=== PATIENT | female | born 1975 | race Hispanic/Latino ===

== ENCOUNTER 2017-12-26 13:58 | Outpatient (CLI) | payer OTHER | END 2017-12-26 13:59 | disposition home or self-care (01) | LOC: BICULT 13:58 | PROVIDERS: ATTEND Family Medicine | DX: O09.522 Supervision of elderly multigravida, second trimester (principal) | CPT/HCPCS: 76805 ==

== ENCOUNTER 2018-03-09 02:21 | Inpatient (IN) | payer OTHER ==
[2018-03-09] MEDS ORDERED: Ondansetron PF 4 MG/2 ML Vial IVP PRN ×2 (03:32→09:22)
[2018-03-09] MEDS ORDERED: HYDROcodone/Acetaminophen 5/325 mg Tablet PO PRN ×4 (03:32→09:22)
[2018-03-09] MEDS ORDERED: Ibuprofen 800 MG TAB PO PRN (03:32)
[2018-03-09] MEDS ORDERED: Lidocaine 1% (PF) 30 ML VIAL SC PRN (03:32)
[2018-03-09] MEDS ORDERED: Penicillin G Potassium 5 MILL.UNITS VIAL ONE ×2 (03:34)
[2018-03-09 03:43] VITALS: BMI 30.2
[2018-03-09] MEDS ORDERED: Penicillin G Potassium 5 MILL.UNITS in Sodium Chloride 0.9% 100 ML IVPB SCH (03:45)
[2018-03-09] MEDS ORDERED: Lactated Ringer's 1,000 ML IV SCH ×2 (03:45)
[2018-03-09 03:55] LABS: Hemoglobin 12.2 g/dL (12.0-16.0); Mean Corpuscular HGB CONC 34.2 g/dL (32.0-36.0); Mean Corpuscular Hemoglobin 34.7 pg (27.0-31.0); Mean Platelet Volume 10.6 fL (7.4-10.4); Platelet Count 134 thou/uL (130-400); RBC Distribution Width 13.4 % (11.5-14.5); Red Blood Cell (RBC) Count 3.53 mill/uL (4.20-5.40); White Blood Cell (WBC) Count 10.8 thou/uL (4.8-10.8)
[2018-03-09] MEDS: Butorphanol Tartrate 1 MG/ML VIAL SLOW IVP PRN ×2 (04:26→06:59)
[2018-03-09 04:35] LABS: HBSAg Index 0.16 S/CO (0-0.99); Hep B Surf Ag Non-Reactive S/CO (NonReactive)
[2018-03-09 04:52] LABS: Syphilis Antibody Nonreactive (Nonreactive); Syphilis Antibody Index 0.03 S/CO (<1.00 Non-Reactive)
[2018-03-09] MEDS ORDERED: Morphine 10 MG/ML VIAL SLOW IVP SCH (05:00)
[2018-03-09] MEDS ORDERED: NS w/ Oxytocin 10 units 500 ML IVPB SCH (07:00)
[2018-03-09] MEDS: Penicillin G 2.5 MILL.units 2.5 MILL.UNITS in Premix Bag 1 BAG IVPB SCH (07:02)
[2018-03-09] MEDS: NS / Oxytocin 40 units/1000ml 1,000 ML IV PRN ×2 (07:11→08:51)
[2018-03-09] MEDS ORDERED: NS / Oxytocin 40 units/1000ml 1,000 ML IV SCH (09:22)
[2018-03-09] MEDS ORDERED: Benzocaine/Menthol 20-0.5% 60 ML CAN TOP PRN (09:22)
[2018-03-09] MEDS ORDERED: Lanolin Ointment 7 GM TUBE TOP PRN (09:22)
[2018-03-09] MEDS ORDERED: Milk Of Magnesia 30 ML UDCUP PO PRN (09:22)
[2018-03-09] MEDS ORDERED: Bisacodyl 10 MG SUPP PR PRN (09:22)
[2018-03-09] MEDS ORDERED: Prenatal Vitamin 1 TAB PO SCH (10:15)
[2018-03-09] MEDS ORDERED: Docusate Calcium (SURFAK) 240 MG CAP PO SCH (10:15)
[2018-03-09] MEDS: Ibuprofen 800 MG TAB PO SCH ×2 (16:54→22:06)
[2018-03-09] MEDS: Ferrous Sulfate 325 MG TAB PO SCH (16:54)
[2018-03-09] MEDS: Docusate Calcium (SURFAK) 240 MG CAP PO SCH (16:55)
[2018-03-10] MEDS: Ibuprofen 800 MG TAB PO SCH ×2 (05:03→14:18)
[2018-03-10 06:20] LABS: Hemoglobin 10.9 g/dL (12.0-16.0); Mean Corpuscular HGB CONC 33.8 g/dL (32.0-36.0); Mean Platelet Volume 10.4 fL (7.4-10.4); Platelet Count 127 thou/uL (130-400); RBC Distribution Width 13.6 % (11.5-14.5); Red Blood Cell (RBC) Count 3.11 mill/uL (4.20-5.40)
[2018-03-10] MEDS: Ferrous Sulfate 325 MG TAB PO SCH ×2 (08:05→17:29)
[2018-03-10] MEDS ORDERED: Prenatal Vitamin 1 TAB PO SCH (09:00)
[2018-03-10 09:09] VITALS: BP 120/70; TEMP 98.1
[2018-03-10] MEDS: Docusate Calcium (SURFAK) 240 MG CAP PO SCH (09:33)
[2018-03-10] MEDS: Penicillin G 2.5 MILL.units 2.5 MILL.UNITS in Premix Bag 1 BAG IVPB SCH (10:29)
== END 2018-03-10 18:44 | disposition home or self-care (01) | DRG 807 ==
LOC: L&D/OP 02:21 → L&D 03:57 → 3SW 21:13
PROVIDERS: ADMIT Family Medicine; ATTEND Family Medicine
PROC: 10E0XZZ Delivery of Products of Conception, External Approach (ICD-10-PCS; principal; 2018-03-09)
PROC: 10907ZC Drainage of Amniotic Fluid, Therapeutic from Products of Conception, Via Natural or Artificial Opening (ICD-10-PCS; 2018-03-09)
DX: O99.824 Streptococcus B carrier state complicating childbirth (principal); Z37.0 Single live birth; Z3A.37 37 weeks gestation of pregnancy
CPT/HCPCS: 36415; 85027; 86780; 86850; 86900; 86901; 87340; 99285; J0595; J2001; J2540

== ENCOUNTER 2018-03-20 17:56 | Inpatient (IN) | payer OTHER ==
[~2018-03-20 17:56] MED LIST: Lidocaine 1% PF 5 ML VIAL ONE; PROPOFOL 200 MG/20 ML VIAL ONE
[2018-03-20] MEDS ORDERED: NS / Oxytocin 40 units/1000ml 1,000 ML IV SCH (18:45)
[2018-03-20 18:52] LABS: #Eosinphils 0.1 thou/uL (0.0-0.7); #Lymphocytes 1.3 thou/uL (1.20-3.40); #Monocytes 0.3 thou/uL (0.11-0.59); #Neutrophils 5.1 thou/uL (1.40-6.50); %Basophils 0.1 % (0.0-1.0); %Lymphocytes 18.5 % (21.0-51.0); %Monocytes 4.8 % (0.0-10.0); %Neutrophils 75.6 % (42.0-75.0); Hemoglobin 11.9 g/dL (12.0-16.0); Mean Corpuscular HGB CONC 35.3 g/dL (32.0-36.0); Mean Corpuscular Hemoglobin 35.8 pg (27.0-31.0); Mean Platelet Volume 7.3 fL (7.4-10.4); Platelet Count 313 thou/uL (130-400); RBC Distribution Width 12.2 % (11.5-14.5); Red Blood Cell (RBC) Count 3.33 mill/uL (4.20-5.40); White Blood Cell (WBC) Count 6.8 thou/uL (4.8-10.8)
[2018-03-20 19:15] LABS: ALT (SGPT) 37 U/L (8-55); AST (SGOT) 22 U/L (5-34); Albumin 3.4 g/dL (3.5-5.0); Alkaline Phosphatase 126 U/L (40-150); Anion Gap 14 mmol/L (10-20); BUN (Urea Nitrogen) 10 mg/dL (7.0-18.7); Bilirubin, Total 0.4 mg/dL (0.2-1.2); Calc. Creatinine Clearance 0 mL/min (70-130); Calcium 8.6 mg/dL (7.8-10.44); Carbon Dioxide 20 mmol/L (22-29); Chloride 109 mmol/L (98-107); Estimated GFR-MDRD Greater than 90; Globulin 3.4 g/dL (2.4-3.5); Glucose 108 mg/dL (70-105); Potassium 3.7 mmol/L (3.5-5.1); Protein, Total 6.8 g/dL (6.0-8.3); Sodium 139 mmol/L (136-145)
[2018-03-20] MEDS ORDERED: Methylergonovine 0.2 MG/ML VIAL IM SCH (19:15)
[2018-03-20] MEDS ORDERED: Ampicillin/Sulbactam 3 GM in Sodium Chloride 0.9% 100 ML IVPB SCH (21:15)
[2018-03-20] MEDS ORDERED: PROPOFOL 40 ML ONE (22:07)
[2018-03-20] MEDS ORDERED: Fentanyl 100 MCG/2 ML VIAL ONE (22:07)
--- NOTE | 2018-03-20 22:19 | ULT ---
PELVIC ULTRASOUND: 03/20/18 HISTORY: Vaginal delivery on 03/09/18, heavy bleeding today. TECHNIQUE: Multiplanar dickens scale sonographic imaging of the pelvis obtained with transabdominal imaging. FINDINGS: Neither ovary is visualized. No significant free fluid is evident on this exam. The uterus is heterog eneous and enlarged measuring 13.9 x 8.0cm, consistent with the patient's state. The endom etrium is thickened and heterogeneous, measuring 3.9 cm in transverse dimension. No discrete blood fl ow is seen within the thickened endometrium. IMPRESSION: Markedly thickened and heterogeneous endometrium with no internal blood flow. This could simply repre sent blood clot or retained products of conception. POS: AL
[2018-03-20] MEDS ORDERED: Meperidine HCl/PF 25 MG/ML VIAL SLOW IVP PRN (22:33)
[2018-03-20] MEDS ORDERED: Promethazine HCl 25 MG/ML VIAL SLOW IVP PRN (22:33)
[2018-03-20] MEDS ORDERED: Ondansetron HCl/PF 4 MG/2 ML Vial IVP PRN (22:33)
[2018-03-20] MEDS ORDERED: Promethazine HCl 25 MG/ML VIAL IM PRN (22:33)
[2018-03-20] MEDS ORDERED: Oxytocin 10 UNITS/ML VIAL ONE (22:53)
[2018-03-21] MEDS ORDERED: Calcium Carbonate 500 MG ChewTAB PO PRN (01:13)
[2018-03-21] MEDS ORDERED: Misoprostol 200 MCG TAB VAG PRN (01:13)
[2018-03-21] MEDS ORDERED: Senokot S 8.6-50 MG TAB PO PRN (01:13)
[2018-03-21] MEDS ORDERED: Bisacodyl 5 MG TAB PO PRN (01:13)
[2018-03-21] MEDS ORDERED: Ondansetron PF 4 MG/2 ML Vial IVP PRN (01:13)
[2018-03-21] MEDS ORDERED: Bisacodyl 10 MG SUPP PR PRN (01:13)
[2018-03-21] MEDS ORDERED: NS / Oxytocin 40 units/1000ml 1,000 ML IV SCH (01:13)
[2018-03-21] MEDS ORDERED: Ondansetron ODT 4 MG TAB PO PRN (01:13)
[2018-03-21] MEDS ORDERED: Milk Of Magnesia 30 ML UDCUP PO PRN (01:13)
[2018-03-21] MEDS ORDERED: Acetaminophen 325 MG TAB PO PRN (01:13)
[2018-03-21] MEDS ORDERED: Methylergonovine 0.2 MG/ML VIAL IM PRN (01:13)
[2018-03-21 01:50] VITALS: BMI 27.4
--- NOTE | 2018-03-21 04:59 | HP ---
REGULAR PHYSICIAN: Rory Nunes MD. CHIEF COMPLAINT: Bleeding at home. HISTORY OF PRESENT ILLNESS: Ms. Pires is a 42-year-old , G4, now P4, who is now status post uncomplicated vaginal delivery on 03/09/[address] Nunes. There were no reported complications at the time of delivery. She comes to the ER this evening, complaining of heavy vaginal bleeding at home. She denies fever, chills, nausea, or vomiting. PAST OBSTETRICAL HISTORY: Includes four uncomplicated vaginal deliveries as above. PAST MEDICAL HISTORY: None. PAST SURGICAL HISTORY: None. CURRENT MEDICATIONS: vitamins. ALLERGIES: NO KNOWN ALLERGIES. SOCIAL HISTORY: She denies tobacco, alcohol, or drug use. FAMILY HISTORY: Unremarkable. PHYSICAL EXAMINATION: VITAL SIGNS: In the ER, her blood pressures are 130s/80s with pulses in the 80s. GENERAL: She is in no acute distress. CHEST: Clear to auscultation. CARDIOVASCULAR: Regular rate and rhythm. ABDOMEN: Soft and nontender. PELVIS: On bimanual exam, the uterus is approximately 14 to 16 weeks in size. A copious amount of clot is removed from the lower uterine segment. There appears to be tissue palpable above the lower uterine segment. Approximately 300 mL of clot is removed. LABORATORY DATA: White count 6.8, hemoglobin 11.9, hematocrit 33.8, and platelet counts 313,000. Sodium 139, potassium 3.7, creatinine 0.69, glucose 108. Bilirubin 0.4, AST 22, and ALT 37. She is B positive with negative antibody screen. Pelvic ultrasound shows a material in the uterus, possibly consistent with retained products of conception. ASSESSMENT: 1. hemorrhage. 2. Suspected retained products of conception. PLAN: At this time, I have consented her for a D and C, and the OR has been contacted. 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 The risks and benefits of D and C were discussed with her in detail and include anesthesia, bleeding, infection, as well as damage to adjacent organs requiring a repair, removal, or transfusion. She accepts all of the above and wishes to proceed. Job ID: [id number]
--- NOTE | 2018-03-21 05:12 | OP ---
DATE OF PROCEDURE: 03/20/2018 PREOPERATIVE DIAGNOSES: 1. hemorrhage. 2. Suspected retained products of conception. POSTOPERATIVE DIAGNOSIS: Retained products of conception. PROCEDURE PERFORMED: Suction curettage to the uterus. ANESTHESIA: IV sedation. ESTIMATED BLOOD LOSS: Less than 100 mL. COMPLICATIONS: None. DESCRIPTION OF PROCEDURE: After good IV sedation was achieved, the patient was prepped and draped in the usual sterile fashion in the dorsal lithotomy position using the candy-cane stirrups. Weighted speculum was inserted in the vagina after bimanual exam, which showed the uterus to be 12 to 14 weeks in size. A sponge stick was used to grasp the anterior cervix. A 12-mm curved Vacurette was placed into the uterine cavity and suction curettage was performed. Tissue consistent with placental fragments were obtained. The sharp curette was then passed through all quadrants to the uterus and no remaining placental fragments were obtained. All instruments were then removed from the vagina. Sponge and instrument counts were correct. The patient tolerated the procedure well and was taken to recovery room in good condition. Job ID: [id number]
[2018-03-21] MEDS ORDERED: Ampicillin/Sulbactam 3 GM in Sodium Chloride 0.9% 100 ML IVPB SCH (06:00)
[2018-03-21 06:42] LABS: #Eosinphils 0.1 thou/uL (0.0-0.7); #Lymphocytes 1.6 thou/uL (1.20-3.40); #Monocytes 0.4 thou/uL (0.11-0.59); #Neutrophils 7.4 thou/uL (1.40-6.50); %Basophils 0.4 % (0.0-1.0); %Eosinophils 0.8 % (0.0-10.0); %Monocytes 4.1 % (0.0-10.0); %Neutrophils 77.7 % (42.0-75.0); Hemoglobin 9.1 g/dL (12.0-16.0); Mean Platelet Volume 7.2 fL (7.4-10.4); Platelet Count 235 thou/uL (130-400); RBC Distribution Width 12.3 % (11.5-14.5); Red Blood Cell (RBC) Count 2.53 mill/uL (4.20-5.40); White Blood Cell (WBC) Count 9.5 thou/uL (4.8-10.8)
--- NOTE | 2018-03-21 07:07 | PDOC.EVN ---
Event Note - Event Note Event Note: Doing well s/p D&C. No complaints this AM. VSS, AF. BP= 116/62, P= 69. T= 98.6 Abdomen is soft and NT. Lochia small. H&H= 9.05/19. Plan: DC home on , RTC with Dr. Nunes in 2 weeks.
[2018-03-21 07:55] VITALS: BP 122/68; TEMP 98.2
[2018-03-21] MEDS ORDERED: Ferrous Sulfate 325 MG TAB PO SCH (08:00)
[2018-03-21] MEDS ORDERED: Docusate Calcium (SURFAK) 240 MG CAP PO SCH (09:00)
== END 2018-03-21 10:46 | disposition home or self-care (01) | DRG 769 ==
LOC: ERS 17:56 → SDC 21:51 → 3SE 22:00
PROVIDERS: ADMIT Obstetrics & Gynecology; ATTEND Obstetrics & Gynecology
PROC: 10D17Z9 Manual Extraction of Products of Conception, Retained, Via Natural or Artificial Opening (ICD-10-PCS; principal; 2018-03-20)
DX: O72.2 Delayed and secondary postpartum hemorrhage (principal); D62 Acute posthemorrhagic anemia
CPT/HCPCS: 36415; 76856; 80053; 85025; 86850; 86900; 86901; 88305; 96365; 96372; 96375; J0295; J2001; J2210; J2590; J2704; J3010; J7050

== ENCOUNTER 2018-03-23 18:48 | Emergency (ER) | payer OTHER ==
[2018-03-23] MEDS ORDERED: Tranexamic Acid 1,000 MG in Sodium Chloride 0.9% 250 ML 250 ML IVPB SCH (21:00)
--- NOTE | 2018-03-23 21:37 | ULT ---
PELVIC ULTRASOUND 03/23/18 COMPARISON: None. HISTORY: Vaginal delivery 14 days ago. D&C two days ago for retained products of conception with increased ble eding today. TECHNIQUE: Multiplanar dickens scale and color doppler images were obtained in a transabdominal pelvic ultrasound. FINDINGS: The uterus is normal in size. Endometrial stripe is thickened and heterogeneous in appearance without areas of increased flow seen within the thickened endometrium. This may represent blood products. Th ere are small echogenic foci within the cervix which may represent bubbles of air. A small amount of free fluid is seen in the pelvis. The left ovary could not be visualized. The right ovary is unremarkable. IMPRESSION: Thickened endometrium may represent blood products within the endometrial canal. POS: MINDY
--- NOTE | 2018-03-26 07:48 | CON ---
DATE OF CONSULTATION: 03/23/2018 PRIMARY OB: Rory Nunes MD CHIEF COMPLAINT: Vaginal bleeding. HOSPITAL COURSE: The patient is a 42-year-old female, who is approximately 2 weeks out status post term spontaneous vaginal delivery and 2 days out from D and C due to heavy vaginal bleeding. The patient represented to the emergency room again reporting heavy vaginal bleeding at home associated with near syncope, and I was called for evaluation. By this time, I presented, the patient reported that she is having her very much reduced bleeding. Denied any shortness of breath, dizziness, chest pain, headache, fever, or pain. PAST MEDICAL HISTORY: Negative. PAST SURGICAL HISTORY: D and C 2 days prior. SOCIAL HISTORY: Denies drug, alcohol, or tobacco use. ALLERGIES: NO KNOWN DRUG ALLERGIES. PHYSICAL EXAMINATION: VITAL SIGNS: At the time of evaluation, blood pressure 132/71, pulse of 73, respiratory rate 18, saturating 98% on room air. GENERAL: The patient appears to be in no acute distress. She is alert and oriented, cooperative, and pleasant to interact with. HEAD: Normocephalic, atraumatic. LUNGS: Clear to auscultation bilaterally. HEART: Regular rate and rhythm. ABDOMEN: Soft, gravid. It is nontender. On speculum exam, the patient has approximately 5 mL of blood in the vaginal vault with a layer of very liquidly-appearing blood. Cervix appears to be closed. On bimanual exam, uterus is firm, and with a closed cervix. Ultrasound demonstrated thickened endometrium with possible clot present. I reviewed the pathology report from her previous surgery 2 days ago, which showed the visualized endometrium and likely placental site endometrium with possible fragments. With these findings, this patient no longer was bleeding. Plan at this time to discharge the patient home. However, given her representation and recurrent bleeding, we did give patient a dose of 1 g of lysteda prior to discharge. She has been given instructions to return if her bleeding persists. She was given prescription for lysteda tablets to be taken every 8 hours for bleeding for 4 days should her bleeding return. Of note, the patient's hemoglobin at the time of evaluation is 8.2, hematocrit 23.3, platelets are 221,000. After evaluation, the patient was cleared for discharge home and given instructions to follow up with her primary OB, Dr. Nunes, next week. Job ID: [id number] [facility]
== END 2018-03-24 00:01 | disposition home or self-care (01) ==
LOC: ERS 18:48
DX: N93.9 Abnormal uterine and vaginal bleeding, unspecified (principal)
CPT/HCPCS: 36415; 76856; 86850; 86900; 86901; 96361; 96365; J7050